=== PATIENT | male | born 1980 | race Two or more races ===

== ENCOUNTER 2017-04-01 00:48 | Emergency (ER) | payer SELFPAY ==
[~2017-04-01] VITALS: Ht 167.6 cm; Wt 63.5 kg
[2017-04-01] MEDS ORDERED: ACETAMINOPHEN ES 500 MG TABLET ONE ×2 (01:05→01:09)
--- NOTE | 2017-04-01 01:07 | NUR ---
PT PRESENTED TO THE ER WITH A C/O SORE THROAT, RT FLANK PAIN 7.5/10, AND FEVER. PT APPEARS FLUSHED. RESP EVEN AND UNLABORED. PT IS ZAMBIAN SPEAKING ONLY. PT IS ON THE MONITOR AND CONTINUOUS PULSE OX.
--- NOTE | 2017-04-01 01:15 | NUR ---
BLOOD WAS DRAWN.
--- NOTE | 2017-04-01 01:20 | NUR ---
PT LEFT FOR CT VIA GURNEY.
[2017-04-01] MEDS ORDERED: IV SET PRIMARY 1 EA INFUS.SET MC ONE (01:24)
[2017-04-01] MEDS ORDERED: MORPHINE SULFATE INJ 4 MG/ML DISP.SYRIN ONE (01:24)
[2017-04-01] MEDS ORDERED: IV NS 0.9% 1,000 ML ONE (01:24)
[2017-04-01] MEDS ORDERED: ONDANSETRON HCL/PF 4 MG/2 ML VIAL ONE (01:24)
[2017-04-01] MEDS ORDERED: ONDANSETRON HCL/PF 4 MG/2 ML VIAL IVP ONE (01:30)
[2017-04-01] MEDS ORDERED: MORPHINE SULFATE INJ 2 MG/ML DISP.SYRIN IV ONE (01:30)
[2017-04-01] MEDS ORDERED: ACETAMINOPHEN 325 MG TABLET PO ONE (01:30)
[2017-04-01] MEDS ORDERED: IV NS 0.9% 1,000 ML BAG IV ONE (01:30)
[2017-04-01 01:35] LABS: BASOPHILS % (AUTO) 0.1 % (0.0-2.0); EOSINOPHILS # (AUTO) 0.2 /CMM (0.0-0.7); EOSINOPHILS % (AUTO) 1.2 % (0.0-6.0); HEMATOCRIT 45 % (39-51); HEMOGLOBIN 15.3 g/dL (13.5-17.5); LYMPHOCYTES # (AUTO) 0.7 /CMM (0.8-4.8); LYMPHOCYTES % (AUTO) 5.7 % (20.0-44.0); MEAN CORPUSCULAR HEMOGLOBIN 32 PG (26.0-33.0); MEAN CORPUSCULAR HGB CONC 34 g/dl (31.0-36.0); MEAN CORPUSCULAR VOLUME 94 fL (80-96); MONOCYTES # (AUTO) 0.4 /CMM (0.1-1.30); MONOCYTES % (AUTO) 2.8 % (2.0-12.0); NEUTROPHILS # (AUTO) 11.8 /CMM (1.8-8.9); NEUTROPHILS % (AUTO) 90.2 % (43.0-81.0); PLATELET COUNT (AUTO) 200 /CMM (150-450); RDW COEFFICIENT OF VARIATION 13.1 (11.5-15.0); RED BLOOD CELL COUNT(AUTO) 4.77 MIL/uL (4.5-6.0); WHITE BLOOD COUNT (AUTO) 13.1 K/uL (4.3-11.0)
--- NOTE | 2017-04-01 01:40 | NUR ---
PT RETURNED FROM CT.
[2017-04-01 01:44] LABS: CALCIUM, SERUM 8.8 mg/dL (8.5-10.1); CREATININE 0.9 mg/dL (0.6-1.3); POTASSIUM 3.2 mmol/L (3.5-5.1)
[2017-04-01 01:49] LABS: ALBUMIN 3.7 g/dL (3.4-5.0); BILIRUBIN,DIRECT 0.1 mg/dL (0.0-0.2); BILIRUBIN,TOTAL 0.4 mg/dL (0.2-1.0); TOTAL PROTEIN, SERUM 7.8 g/dL (6.4-8.2)
[2017-04-01 02:01] LABS: APPEARANCE,URINE CLEAR (CLEAR); BILIRUBIN,URINE NEGATIVE (NEGATIVE); BLOOD, URINE NEGATIVE Ery/uL (NEGATIVE); COLOR,URINE YELLOW (YELLOW); KETONES,URINE TRACE (NEGATIVE); LEUKOCYTE ESTERASE ,URINE NEGATIVE (NEGATIVE); NITRITE, URINE NEGATIVE (NEGATIVE); PH,URINE 5.5 (5.0-8.0); PROTEIN,URINE NEGATIVE (NEGATIVE); UGLUCOSE NEGATIVE (NEGATIVE); UROBILINOGEN,URINE 0.2 EU/dL (0.2)
[2017-04-01 02:26] LABS: BACTERIA,URINE None seen /HPF (None Seen); RBC,URINE NONE SEEN /HPF (0-2); SQUAMOUS EPITHELIAL CELL,UR Rare /HPF (None Seen); WBC,URINE NONE SEEN /HPF (0-3)
[2017-04-01 02:27] LABS: MUCUS,URINE Rare /LPF (None Seen)
[2017-04-01 02:31] LABS: BAND % (MANUAL) 3 % (0.0-5.0); LYMPHOCYTES % (MANUAL) 4 % (16-48); MONOCYTES % (MANUAL) 6 % (0-11.0); NEUTROPHILS % (MANUAL) 86 (42-76)
[2017-04-01 02:32] LABS: EOSINOPHILS % (MANUAL) 1 % (0-4)
[2017-04-01 02:34] VITALS: BP 108/57
--- NOTE | 2017-04-01 02:38 | NUR ---
IV removed. Catheter intact and site benign. Pressure and 4x4 applied to site. No bleeding noted. Patient discharged to home in stable condition. Written and verbal after care instructions given. Patient verbalizes understanding of instruction. pt is ambulatory with a steady gait
== END 2017-04-01 02:30 | disposition home or self-care (01) ==
LOC: ER 00:54
DX: B34.9 Viral infection, unspecified (principal); F17.200 Nicotine dependence, unspecified, uncomplicated
CPT/HCPCS: 36415; 71010; 72128; 74176; 80048; 80076; 81001; 83605; 83690; 85025; 87040 ×2; 87070; 87076; 87804 ×2; 87880; 96360; 96374; 96375; 99285; A4606; J2270; J2405; J7030; Z7610; 81000-TC; 86403-TC; 87400